=== PATIENT | male | born 1990 | race Caucasian/White ===

== ENCOUNTER 2016-06-03 22:14 | Emergency (ER) | payer OTHER ==
[~2016-06-03] VITALS: Ht 172.7 cm; Wt 94.6 kg
[2016-06-03 22:16] VITALS: Ht 172.7 cm; Wt 94.6 kg
[2016-06-03] MEDS ORDERED: AMOXICILLIN 250 MG CAP PO STA (22:23)
[2016-06-03] MEDS ORDERED: AMOX500C3 PO (22:25)
[2016-06-03] MEDS ORDERED: TRAM-10 PO (22:25)
[2016-06-03] MEDS ORDERED: TRAMADOL HCL 50 MG HOME PACK PO ONE (22:30)
[2016-06-03 22:32] VITALS: BP 155/85; PULSE 91; TEMP 37; O2SAT 98
--- NOTE | 2016-06-04 00:47 | EMERGENCY ROOM VISIT NOTE ---
History First contact with patient: 22:17 Chief Complaint: SINUS CONGESTION/PRESSURE Stated Complaint: RT SINUS PAIN Nursing Triage Summary: see triage note History of Present Illness The patient is a 26 year old male who presents to the Emergency Room with complaints of right upper dental pain for the past few days has not seen a dentist in quite some time. Patient states the pain radiates to his ear. Chewing makes it worse and nothing makes it better. Patient denies fevers, sore throat, tongue swelling, facial swelling, chest pain, dyspnea, neck stiffness, lightheadedness or dizziness. He is tolerating by mouth fluids and food. Review of Systems See HPI for pertinent positives & negatives. A total of 10 systems reviewed and were otherwise negative. Past Medical/Surgical History Medical Problems: (1) Asthma (2) Depression Family History Diabetes mellitus Social History Smoking Status: Never Smoker Marital Status: single Housing Status: lives with roommate Occupation Status: employed, [employer] student Current/Historical Medications Scheduled Amoxicillin (Amoxil), 500 MG PO TID Scheduled PRN Tramadol (Ultram), 1 TAB PO Q4H PRN for Pain Allergies Coded Allergies: Acetaminophen (Unverified Allergy, Unknown, ITCHY, 12/18/15) Oxycodone (Unverified Allergy, Unknown, ITCHY, 12/18/15) Physical Exam Vital Signs Date Time Temp Pulse Resp B/P Pulse Ox O2 Delivery O2 Flow Rate FiO2 06/03/16 22:32 37.0 91 18 155/85 98 06/03/16 22:16 37.0 91 18 155/85 98 Room Air Pain Rating (0-10): 2.0 Physical Exam VITALS: Vitals are noted on the nurse's note and reviewed by myself. Vital signs stable. GENERAL: Pleasant male, in no acute distress, nondiaphoretic, well-developed well-nourished. SKIN: The skin was without rashes, erythema, edema, or bruising. There is no tenting of the skin. Capillary reflex less than 2 seconds. HEAD: Normocephalic atraumatic. EARS: External auditory canals clear, tympanic membranes pearly crews without erythema or effusion bilaterally. EYES: Pupils equal round and reactive to light and accommodation. Conjunctivae without injection, sclerae without icterus. Extraocular movements intact. NOSE: Patent, turbinates without inflammation or discharge. No sinus tenderness. MOUTH: Mucous membranes moist. No Luis's angina Pharynx without erythema or exudate. Uvula midline. Airway patent. Tongue does not deviate. Dental exam: Extensive plaque buildup with dental decay to the right upper molar with no palpable abscess NECK: Supple without nuchal rigidity. No lymphadenopathy. No thyromegaly. Cervical spine is nontender. No JVD. HEART: Regular rate and rhythm without murmurs gallops or rubs. LUNGS: Clear to auscultation bilaterally without wheezes, rales or rhonchi. No dullness to percussion. No retractions or accessory muscle use. ABDOMEN: Positive bowel sounds x 4. Normal tympanic percussion. Soft, nontender, without masses or organomegaly. Cheema sign negative. No guarding or rebound tenderness. MUSCULOSKELETAL: No muscle atrophy, erythema, or edema noted. NEURO: Patient was alert and oriented to person place and time. Normal sensation to light and sharp touch. No focal neurological deficits. Medical Decision & Procedures Medications Administered Medications (Trade) Dose Ordered Sig/Tim Route Start Time Stop Time Status Last Admin Dose Admin Amoxicillin (Amoxil Cap) 500 mg NOW STAT PO 06/03/16 22:23 06/03/16 22:24 DC 06/03/16 22:31 500 MG Tramadol HCl (Ultram Home Pack) 1 homepack UD ONCE PO 06/03/16 22:30 06/03/16 22:31 DC 06/03/16 22:32 1 HOMEPACK ED Course Prior records reviewed and summarized as above. Triage Nursing notes reviewed. The patient's history was concerning for dental pain Differential diagnosis: Etiologies such as cellulitis, abscess, gingivitis, dental caries, Luis angina , otitis, as well as others were entertained.. Physical examination: The physical examination was consistent with dental pain from dental caries ER treatment provided: Amoxicillin, Ultram On reassessment the patient felt better. Diagnostics interpreted by me: Deferred This appears to be dental pain from dental caries. Patient was counseled on proper dental hygiene and verbalized understanding of this. He was advised follow-up with dentistry for definitive care for his dental problem or here in the ER sooner for facial swelling, fevers, dysphagia, worsening signs or symptoms or as needed. Patient had no signs of airway compromise or Luis angina or accessory was well-appearing. By the evaluation outlined above emergent etiologies such as abscess, Luis angina, as well as others were deemed relatively unlikely. The pt informed about the findings as listed above. All questions were answered and pleased with the treatment. Return instructions were outlined and the patient was discharged in stable condition. Outpatient prescription management: Amoxicillin, Ultram Referral: The patient was referred back to dentistry for follow-up in 2 to 3 days for a recheck of the current condition. Medical Decision As above Impression Primary Impression: Dental caries Additional Impression: Pain, dental Departure Information Dispostion Home / Self-Care Condition GOOD Prescriptions Tramadol (Ultram) 50 Mg Tab 1 TAB PO Q4H Y for Pain, #14 TAB For Initial Treatment Prov: Mabel Tellez .JACQUIE 06/03/16 Amoxicillin (AMOXIL) 500 Mg Cap 500 MG PO TID for 10 Days, #30 CAP Prov: Mabel Tellez PA-C 06/03/16 Referrals Jackson Sorenson, DO No Doctor, Assigned (PCP) Forms WORK / SCHOOL INSTRUCTIONS, HOME CARE DOCUMENTATION FORM, IMPORTANT VISIT INFORMATION Patient Instructions Visit Dental, [facility], [facility] Additional Instructions Amoxicillin 500mg: Take one pill 3 times daily for 10 days for your infection. All antibiotics can cause diarrhea. If this occurs and you feel worse or it does not resolve in 1-2 days follow up with your doctor or return to the Emergency Department as this could be signs of serious underlying problems. Any medication can cause an allergic reaction, stop the pills immediately and return to the ER for rash, hives, breathing difficulties, or swelling. Ultram 50 mg: Take 1-2 pills every four hours for breakthrough pain. Avoid alcohol, operating machinery or dangerous equipment, working on ladders or roofs , DRIVING, or situations where being under the influence may be dangerous. It is recommended to use an [id number] stool softener such as Colace, 100mg twice daily while taking this medication to avoid constipation. Ibuprofen(Motrin, Advil) may be used for fever or pain. Use 600mg every six hours as needed. Take with food. Avoid using more than 2400mg in a 24 hour period. Do not use 2400mg per day for more than three consecutive days without physician direction. Prolonged inappropriate use can lead to stomach upset or ulcers. This medication can be taken if you need to drive, work, or perform activities which may be dangerous when taking narcotic pain medication. (AND/OR) Acetaminophen(Tylenol) may be used for fever or pain. Use 1000mg every six hours as needed. Avoid using more than 3000mg in a 24 hour period. This medication can be taken if you need to drive, work, or perform activities which may be dangerous when taking narcotic pain medication. [place] teeth twice a day, floss daily and do warm saltwater gargles 3 times a day. See a dentist as soon as possible for definitive care for your dental problem. Return to ER sooner for facial swelling, fever, redness, worsening signs or symptoms or as needed. Problem Qualifiers
== END 2016-06-03 22:32 | disposition home or self-care (01) ==
LOC: C.EDB 22:14
DX: K02.9 Dental caries, unspecified (principal); J45.909 Unspecified asthma, uncomplicated; F32.9 Major depressive disorder, single episode, unspecified; Z83.3 Family history of diabetes mellitus

== ENCOUNTER 2016-06-06 18:44 | Emergency (ER) | payer OTHER ==
[~2016-06-06] VITALS: Ht 172.7 cm; Wt 95.0 kg
[~2016-06-06 18:44] MED LIST: AMOX500C3 PO; TRAM-10 PO
[2016-06-06 18:47] VITALS: TEMP 36.8; Ht 172.7 cm; Wt 95.0 kg
[2016-06-06] MEDS ORDERED: SODIUM CHLORIDE 0.9% 1000ML 1,000 ML IV STA (18:56)
[2016-06-06] MEDS ORDERED: DiphenhydrAMINE HCL 50 MG/ML VIAL IV STA (18:56)
[2016-06-06] MEDS ORDERED: ACETAMINOPHEN 500 MG TAB PO STA (18:56)
--- NOTE | 2016-06-06 19:04 | EMERGENCY ROOM VISIT NOTE ---
History Report prepared by Estrella: Raeann Flores Under the Supervision of: Dr. Jeff Velasco M.D. First contact with patient: 18:51 Chief Complaint: HEADACHE Stated Complaint: HEADACHE History of Present Illness The patient is a 26 year old male who presents to the Emergency Room with complaints of a persistent headache that began one day ago. He currently rates his discomfort as an 8/10 in severity. The patient states that he has a history of a "ruptured blood vessel" in the back of his head one year ago. He states that he had to stop exercising for two months. The patient states that yesterday while at the gym he was in the middle of a shoulder press when he felt a pressure on the left side of his head in the middle of his repetitions. He states that with his previous rupture, he had an epistaxis and eye watering. The patient states that this time, his symptoms have not been as extreme. He states that he had slight epistaxis and left eye edema and left eye watering. The patient states that his headache hasn't gone away since the incident--it has waxed and waned. He states that yesterday he tried taking Advil migraine and ibuprofen without relief of his symptoms. The patient denies taking anything for his pain today. The patient notes recent sinus congestion. Source of History: patient Onset: one day ago Position: head Symptom Intensity: 8/10 Quality: pressure Timing: other (persistent) Note: Associated Symptoms: epistaxis, left eye watering and left eye edema, sinus congestion Review of Systems See HPI for pertinent positives & negatives. A total of 10 systems reviewed and were otherwise negative. Past Medical & Surgical Medical Problems: (1) Asthma (2) Depression Family History Diabetes mellitus Social History Smoking Status: Never Smoker Marital Status: single Housing Status: lives with roommate Occupation Status: employed, [employer] student Current/Historical Medications Scheduled PRN Amphetamine-Dextroamphetamine 20MG (Adderall 20MG), 20 MG PO DAILY PRN for PRN Allergies Coded Allergies: Acetaminophen (Unverified Allergy, Unknown, ITCHY, 06/06/16) Oxycodone (Unverified Allergy, Unknown, ITCHY, 06/06/16) Physical Exam Vital Signs Date Time Temp Pulse Resp B/P Pulse Ox O2 Delivery O2 Flow Rate FiO2 06/06/16 18:47 36.8 73 16 139/68 99 Room Air Physical Exam GENERAL: Patient is in no acute distress. HEENT: No acute trauma, normocephalic atraumatic, mucous membranes moist, no nasal congestion, no scleral icterus. No tenderness to the scalp, no rash, Left TM normal, throat without erythema or exudate. NECK: No stridor, no adenopathy, no meningismus, trachea is midline. LUNGS: Clear to auscultation bilaterally, no wheeze, no rhonchi, breath sounds equal. HEART: Without murmurs gallops or rubs, regular rate and rhythm. ABDOMEN: Soft, nontender, bowel sounds positive, no hernias, no peritonitis. EXTREMITIES: No cyanosis or edema, full range of motion of all the joints without pain or difficulty, no signs for acute trauma. NEUROLOGIC: Oriented x 3, no acute motor or sensory deficits, no focal weakness. SKIN: No rash, no jaundice, no diaphoresis. Medical Decision & Procedures ER Provider Diagnostic Interpretation: CT angiogram of the brain shows no acute bleed or aneurysm. No mass effect seen. Sinusitis was noted. Laboratory Results 06/06/16 19:13 06/06/16 19:13 Test 06/06/16 19:13 Red Blood Count 5.62 M/uL (4.7-6.1) Mean Corpuscular Volume 83.1 fL (80-100) Mean Corpuscular Hemoglobin 30.1 pg (25-34) Mean Corpuscular Hemoglobin Concent 36.2 g/dl (32-36) RDW Standard Deviation 38.8 fL (36.4-46.3) RDW Coefficient of Variation 13.0 % (11.5-14.5) Mean Platelet Volume 9.8 fL (7.4-10.4) Anion Gap 6.0 mmol/L (3-11) Est Creatinine Clear Calc Drug Dose 130.3 ml/min Estimated GFR () 125.9 Estimated GFR (Non- 108.7 BUN/Creatinine Ratio 14.9 (10-20) Calcium Level 9.0 mg/dl (8.5-10.1) Laboratory results reviewed by me. Medications Administered Medications (Trade) Dose Ordered Sig/Tim Route Start Time Stop Time Status Last Admin Dose Admin Sodium Chloride (Nss 1000ml) 1,000 ml @ 999 mls/hr Q1H1M STAT IV 06/06/16 18:56 06/06/16 19:56 DC 06/06/16 19:43 999 MLS/HR Acetaminophen (Tylenol Tab) 1,000 mg NOW STAT PO 06/06/16 18:56 06/06/16 19:00 DC 06/06/16 19:42 1,000 MG Diphenhydramine HCl (Benadryl Inj) 25 mg NOW STAT IV 06/06/16 18:56 06/06/16 19:00 DC 06/06/16 19:41 25 MG ED Course 1850: The patient was evaluated in room B10. A complete history and physical exam was performed. 1855: Ordered Benadryl Inj 25 mg IV, Tylenol Tab 1000 mg PO, Sodium Chloride 1000 ml @ 999 mls/hr IV. The patient received a dose of oral Augmentin, he was discharged home. Medical Decision The patient is a 26 year old male who presents to the ED with complaints of a headache. Differential diagnoses considered include tension headache, migraine headache, sinusitis, intracranial bleeding, aneurysm, dehydration, electrolyte imbalance, infection. There is no concerning leukocytosis, there was no worrisome anemia. No significant electrolyte abnormality or kidney failure. On exam, the patient had no acute focal neurologic findings. He was awake, he was alert, he was not febrile, there is no meningismus. He was not toxic. He was smiling and joking around at times when talking about his situation. Brain CT was done, CT angiogram demonstrated no acute bleed or mass effect. There was no aneurysm. Sinusitis was noted. Patient presents with a headache that began while exercising. He had a similar event years ago and states that his event years ago was quite a bit worse. He underwent imaging of the brain at that time as well as a lumbar puncture, everything was normal. He eventually felt better after a few days or so. I do not feel the patient needs a lumbar puncture. His headache years ago that began with exercise was much more severe than today's and his workup at that time, including a lumbar puncture, was negative. Today, he is not in any distress. He does have sinusitis by CT and this may be a large part of his issue. He will be discharged on Augmentin for 10 days. He should avoid exercise, Motrin or Tylenol for pain, rest and hydration were encouraged. During the patient's ER stay, he was given oral Tylenol, IV saline and IV Benadryl. He was given a dose of oral Augmentin prior to discharge. He is doing well. Impression Primary Impression: Headache Additional Impression: Sinusitis Scribe Attestation The scribe's documentation has been prepared under my direction and personally reviewed by me in its entirety. I confirm that the note above accurately reflects all work, treatment, procedures, and medical decision making performed by me. Departure Information Dispostion Home / Self-Care Referrals No Doctor, Assigned (PCP) Patient Instructions My [facility] [address] Additional Instructions no exercise or gym work for at least a week--you should be 100 percent better for a few days before returning to exercise motrin and or tylenol for pain--you may need both Augmentin 2 times a day for 10 days. stay well hydrated and rest--8 hours per night see michell shelton for a recheck in a few days return for worsening symptoms imaging and your exam today were all ok Problem Qualifiers
[2016-06-06] MEDS ORDERED: OPTIRAY 320 IV PRN (19:15)
[2016-06-06] MEDS ORDERED: AMPH20TA2 PO (19:20)
[2016-06-06 19:23] LABS: HEMATOCRIT 46.7 % (42-52); MEAN CELL VOLUME 83.1 fL (80-100); MEAN CORPUSCULAR HEMOGLOBIN 30.1 pg (25-34); MEAN CORPUSCULAR HGB CONC 36.2 g/dl (32-36); MEAN PLATELET VOLUME 9.8 fL (7.4-10.4); PLATELET COUNT 234 K/uL (130-400); RED BLOOD COUNT 5.62 M/uL (4.7-6.1); WHITE BLOOD COUNT 10.81 K/uL (4.8-10.8)
[2016-06-06 19:38] LABS: BUN/CREATININE RATIO 14.9 (10-20); CREATININE 0.96 mg/dl (0.60-1.40); POTASSIUM 4.1 mmol/L (3.5-5.1)
--- NOTE | 2016-06-06 20:49 | DIAGNOSTIC IMAGING REPORT ---
CT ANGIOGRAM OF THE BRAIN COMBO CLINICAL HISTORY: Headache. COMPARISON STUDY: CT angiogram of the brain dated 01/21/2009. TECHNIQUE: Before and following the IV administration of 92 cc of Optiray 320, CT angiogram of the brain was performed from the skull base to the vertex. Images are reviewed in the axial, sagittal, and coronal planes. 3-D MIPS images are created and assessed. IV contrast was administered without complication. CT DOSE: 841.02 mGy.cm FINDINGS: Brain parenchyma: The brain parenchyma is normal in appearance. There is no hemorrhage, mass effect, or evidence of acute territorial ischemia by CT criteria. There is no evidence of enhancing mass lesion on the angiogram phase images. No extra-axial fluid collection is seen. Guan-white matter differentiation is preserved. Ventricles, sulci, and cisterns: Normal in configuration. CT angiogram of the brain: The [place] of [place] is development likely complete. The internal carotid arteries are widely patent, as are the anterior and middle cerebral arteries. The vertebrobasilar system and posterior cerebral arteries are widely patent. The vertebral arteries are codominant. There is no aneurysm, high-grade stenosis, or focal vessel cutoff identified throughout the intracranial circulation. Dural sinuses: Clear as visualized. Orbits: The bony orbits are intact. The orbital contents are normal as visualized. Sinuses and mastoids: Moderate mucosal thickening and air-fluid levels are identified within the maxillary antra. Mucosal thickening and fluid is also seen within the right frontal and right anterior ethmoid sinuses. The mastoid air cells are well pneumatized. Calvarium: Unremarkable. IMPRESSION: 1. No acute intracranial abnormality. 2. Unremarkable CT angiogram of the brain. 3. Paranasal sinus disease as above. Electronically signed by: Jeff Garcia M.D. 06/06/2016 8:47 PM Dictated Date/Time: 06/06/2016 8:43 PM
[2016-06-06] MEDS ORDERED: AMOXICILLIN/CLAVULANATE TAB 875 MG TAB PO ONE (21:00)
[2016-06-06] MEDS ORDERED: AMOX875T PO (21:00)
[2016-06-06 21:30] VITALS: BP 157/79; PULSE 64; O2SAT 98
== END 2016-06-06 21:30 | disposition home or self-care (01) ==
LOC: C.EDB 18:44
DX: R51 Headache (principal); J32.9 Chronic sinusitis, unspecified; J45.909 Unspecified asthma, uncomplicated; F32.9 Major depressive disorder, single episode, unspecified; Z83.3 Family history of diabetes mellitus

== ENCOUNTER 2016-11-29 19:47 | Emergency (ER) | payer OTHER ==
[~2016-11-29] VITALS: Ht 170.2 cm; Wt 95.4 kg
[~2016-11-29 19:47] MED LIST changes: -AMOX500C3 PO; +AMPH20TA2 PO; -TRAM-10 PO
[2016-11-29 19:50] VITALS: Ht 170.2 cm; Wt 95.4 kg
[2016-11-29] MEDS ORDERED: PROT1POW PO (20:00)
[2016-11-29 20:30] VITALS: BP 174/88; PULSE 100; TEMP 37; O2SAT 98
--- NOTE | 2016-11-29 20:31 | DIAGNOSTIC IMAGING REPORT ---
L RIBS UNILATERAL WITH PA CHEST CLINICAL HISTORY: Left rib pain following injury. COMPARISON STUDY: Chest radiograph May 04, 2013. FINDINGS: There is no pneumothorax or pleural effusion. Lungs are clear. Cardiomediastinal silhouette is normal. Pulmonary vascularity is normal. No acute left rib fractures are identified. IMPRESSION: No pneumothorax. No acute left rib fractures identified. Electronically signed by: Alessandro Chi M.D. 11/29/2016 8:30 PM Dictated Date/Time: 11/29/2016 8:28 PM
[2016-11-29] MEDS ORDERED: TRAM-10 PO (20:51)
[2016-11-29] MEDS ORDERED: TRAMADOL HCL 50 MG HOME PACK PO ONE (21:00)
--- NOTE | 2016-12-01 01:03 | EMERGENCY ROOM VISIT NOTE ---
ED Visit Note First contact with patient: 19:56 Chief Complaint: I'm having left sided rib pain. History of Present Illness: Mr. Gardner is a 26-year-old male who ambulates into the ED complaining of left lateral rib pain. Patient reports he was wrestling this afternoon when someone started squeezing his chest. He reports he felt a popping sensation on the left and developed left-sided rib pain. The pain is predominantly in the area of the seventh and eighth lateral and slightly anterior portion of the ribs. He rates his discomfort 10/10. The pain is nonradiating. The pain worsens with palpation and deep inspiration. He has not identified any alleviating factors related to the pain. He has not taken a medication for pain prior to arrival at the hospital. He denies any associated symptoms including fevers, chills, sweats, skin eruptions, skin color changes, upper respiratory tract symptoms, cough, wheezing, shortness of breath, abdominal pain, nausea, vomiting, hematuria. Review of Systems: As noted above in history of present illness. 8 body systems were reviewed and found to be negative as noted above. Past Medical History: Diabetes, hypertension, asthma, status post lipoma removal. Current Medications: Protein. Allergies to Medications: Oxycodone. Social History: Patient is currently employed; he feels safe in his home environment; he denies tobacco use; he admits to alcohol use. Physical Examination: Vital Signs: Date Time Temp Pulse Resp B/P (MAP) Pulse Ox O2 Delivery O2 Flow Rate FiO2 11/29/16 20:30 37.0 100 20 174/88 98 Room Air 11/29/16 19:50 37.4 100 20 130/75 98 Room Air GENERAL: 26-year-old male in mild to moderate distress due to pain, nontoxic- appearing, afebrile and hemodynamically stable. NEUROLOGICAL: Awake, alert and oriented to person, place and time. Answering questions appropriately and following commands. Normal gait. SKIN: Warm, dry and pink. No soft tissue eruptions or trauma noted. HEENT: Atraumatic and normocephalic. BACK: No tenderness over the bony spine. No CVA tenderness. THORAX: Lungs sounds are clear to auscultation and equal bilaterally with symmetrical chest wall. No wheezing, rales or rhonchi. Moderate tenderness over the left lateral ribs without bony deformity, bony crepitus, swelling, ecchymosis or subcutaneous air. No increased respiratory effort or rate. HEART: Regular rate and rhythm. No gallops, rubs or murmurs are appreciated. ABDOMEN: Flat, soft and nontender. Positive bowel sounds in all quadrants. No guarding, rigidity or organomegaly. EXTREMITIES: Moves all extremities well on command and with purpose. All distal neurovascular statuses are intact and equal bilaterally. No calf tenderness or cords. ED Course: Patient is assessed as noted above. Patient's medication list was reviewed. A she was offered pain medication and refused. PA Chest with Rib Series: Were read by myself and the radiologist showing no acute infiltrates, effusions or pneumothorax. Normal heart silhouette and no obvious left-sided rib fractures. Patient was educated about today's findings and instructed on his treatment plan ; he verbalized understanding and agreement with this plan. Clinical Impression: Left sided rib pain. Decision-Making: Initially my differential diagnosis I considered rib fracture, rib contusion, costochondritis, pneumothorax, pneumonia and other causes. Disposition: A shunt discharged home in stable condition; prior to departure he was reassessed and subjectively reported he was feeling better and rated his discomfort 8/10. Plan: Patient was placed on a sliding pain medication scale of ibuprofen, acetaminophen and Ultram. Distal comfort measures were decreased activity and ice. Patient was encouraged to avoid upper extremity workout for 3 days. Patient is encouraged to follow-up at [facility] for recheck in 3-4 days. Patient was encouraged to do deep breathing exercises every couple hours during the day while awake. Patient is encouraged return ED for worsening/uncontrolled pain, shortness of breath, fevers, coughs, wheezing or any new/concerning symptoms.
== END 2016-11-29 21:01 | disposition home or self-care (01) ==
LOC: C.EDB 19:48 → C.EDD 21:01
DX: R07.81 Pleurodynia (principal); E11.9 Type 2 diabetes mellitus without complications; I10 Essential (primary) hypertension; J45.909 Unspecified asthma, uncomplicated; Z79.899 Other long term (current) drug therapy; Z88.5 Allergy status to narcotic agent

== ENCOUNTER 2017-10-09 09:33 | Emergency (ER) | payer OTHER ==
[~2017-10-09] VITALS: Ht 172.7 cm; Wt 96.6 kg
[~2017-10-09 09:33] MED LIST changes: -AMPH20TA2 PO; +PROT1POW PO
[2017-10-09 09:37] VITALS: TEMP 37; Ht 172.7 cm; Wt 96.6 kg
[2017-10-09] MEDS ORDERED: SODIUM CHLORIDE 0.9% 1000ML 1,000 ML IV STA (10:06)
[2017-10-09 10:23] LABS: BASO % 0.2 %; BASO ABS # 0.02 K/uL (0-0.2); EOS ABS # 0.66 K/uL (0-0.5); HEMATOCRIT 49.6 % (42-52); HEMOGLOBIN 17.6 g/dL (14.0-18.0); IG# 0.02 K/uL (0.00-0.02); LYMPH % 30.2 %; LYMPH ABS # 2.83 K/uL (1.2-3.4); MEAN CELL VOLUME 83.8 fL (80-100); MEAN CORPUSCULAR HEMOGLOBIN 29.7 pg (25-34); MEAN CORPUSCULAR HGB CONC 35.5 g/dl (32-36); MEAN PLATELET VOLUME 9.9 fL (7.4-10.4); MONO % 10.9 %; MONO ABS # 1.02 K/uL (0.11-0.59); NEUT % 51.5 %; NEUT ABS # 4.83 K/uL (1.4-6.5); PLATELET COUNT 183 K/uL (130-400); RED CELL DISTRIBUTION WIDTH CV 13.1 % (11.5-14.5); RED CELL DISTRIBUTION WIDTH SD 39.6 fL (36.4-46.3); WHITE BLOOD COUNT 9.38 K/uL (4.8-10.8)
[2017-10-09 10:42] LABS: ALBUMIN 3.5 gm/dl (3.4-5.0); CALCIUM 8.8 mg/dl (8.5-10.1); CREATININE 1.18 mg/dl (0.60-1.40); POTASSIUM 3.9 mmol/L (3.5-5.1); TOTAL PROTEIN 7.2 gm/dl (6.4-8.2)
--- NOTE | 2017-10-09 11:41 | EMERGENCY ROOM VISIT NOTE ---
History First contact with patient: 09:54 Chief Complaint: ABDOMINAL PAIN Stated Complaint: STOMACH/WEAKNESS History of Present Illness Via private vehicle the patient is a 27 year old male who presents to the Emergency Room with complaints of "stomach/weakness". The patient states that last night he began with generalized abdominal pain with diarrhea and vomiting. He notes that he had diarrhea all night long. He states that his last meal was around 7 or 8 PM of this past evening and he had chicken/broccoli. He notes it was a meal prep which was prepared this past Sunday. He states it was refrigerated since that time. He states that the abdominal pain is on the right side diffusely. He notes the pain is more with when he presses rather than at rest. He denies any shortness of breath, visual changes, headache no abdominal surgeries. He rates the overall pain upon presentation as an 8/10. Review of Systems A complete 10-point Review of Systems was discussed with the patient, with pertinent positives and negatives listed in the History of Present Illness. All remaining Review of Systems questions can be considered negative unless otherwise specified. Past Medical/Surgical History Medical Problems: (1) Asthma (2) Depression Family History Diabetes mellitus Social History Smoking Status: Never Smoker Drug Use: none Marital Status: single Housing Status: lives with roommate Occupation Status: employed Current/Historical Medications No Active Prescriptions or Reported Meds Physical Exam Vital Signs Date Time Temp Pulse Resp B/P (MAP) Pulse Ox O2 Delivery O2 Flow Rate FiO2 10/09/17 11:56 74 17 148/94 97 10/09/17 09:37 37.0 80 18 139/81 97 Room Air Physical Exam VITAL SIGNS - Vital signs and nursing notes were reviewed. Stable. Afebrile. GENERAL -27-year-old male appearing his stated age who is in no acute distress. Upon my entrance in the exam room the patient is resting comfortably in bed, and a slight recline with a smile. Communicates well with provider and answers questions appropriately. SKIN - Without rashes. No meningeal or petechial rash. HEAD - NC/AT. EYES - Sclera anicteric. Palpebral conjunctiva pink and moist with no injection noted. EARS - No deformities of external structures noted on gross examination bilaterally. NOSE - Midline and without cyanosis. No epistaxis or purulent drainage noted. MOUTH/OROPHARYNX - Without perioral cyanosis. NECK - Neck with FROM.No nuchal rigidity. LUNGS - Chest wall symmetric without accessory muscle use, intercostals retractions, or central cyanosis. Normal vesicular breath sounds CTA B/L. No wheezes, rales, or rhonchi appreciated. CARDIAC - RRR with S1/S2. No murmur, rubs, or gallops appreciated. ABDOMEN - Abdominal contour normal without pulsations or visible masses. BS normoactive all four quadrants. No palpable masses, hepatosplenomegaly, or ascites noted. EXTREMITIES - No clubbing or peripheral cyanosis. No pretibial edema present. +3 /5 radial, posterior tibial, and dorsalis pedis pulses palpated throughout. +5/ 5 strength noted in UE/LE bilaterally. NEUROLOGIC - Cranial nerves II through XII grossly intact. Sensory intact to light touch throughout. PSYCH - A&O, and cooperates fully with examiner. Pt is very pleasant and interacts well with examiner. Medical Decision & Procedures Laboratory Results 10/09/17 10:15 Red Blood Count 5.92, Mean Corpuscular Volume 83.8, Mean Corpuscular Hemoglobin 29.7, Mean Corpuscular Hemoglobin Concent 35.5, Mean Platelet Volume 9.9, Neutrophils (%) (Auto) 51.5, Lymphocytes (%) (Auto) 30.2, Monocytes (%) (Auto) 10.9, Eosinophils (%) (Auto) 7.0, Basophils (%) (Auto) 0.2, Neutrophils # (Auto ) 4.83, Lymphocytes # (Auto) 2.83, Monocytes # (Auto) 1.02, Eosinophils # (Auto ) 0.66, Basophils # (Auto) 0.02 10/09/17 10:15 Test 10/09/17 10:15 10/09/17 11:20 White Blood Count 9.38 K/uL (4.8-10.8) Red Blood Count 5.92 M/uL (4.7-6.1) Hemoglobin 17.6 g/dL (14.0-18.0) Hematocrit 49.6 % (42-52) Mean Corpuscular Volume 83.8 fL (80-100) Mean Corpuscular Hemoglobin 29.7 pg (25-34) Mean Corpuscular Hemoglobin Concent 35.5 g/dl (32-36) Platelet Count 183 K/uL (130-400) Mean Platelet Volume 9.9 fL (7.4-10.4) Neutrophils (%) (Auto) 51.5 % Lymphocytes (%) (Auto) 30.2 % Monocytes (%) (Auto) 10.9 % Eosinophils (%) (Auto) 7.0 % Basophils (%) (Auto) 0.2 % Neutrophils # (Auto) 4.83 K/uL (1.4-6.5) Lymphocytes # (Auto) 2.83 K/uL (1.2-3.4) Monocytes # (Auto) 1.02 K/uL (0.11-0.59) Eosinophils # (Auto) 0.66 K/uL (0-0.5) Basophils # (Auto) 0.02 K/uL (0-0.2) RDW Standard Deviation 39.6 fL (36.4-46.3) RDW Coefficient of Variation 13.1 % (11.5-14.5) Immature Granulocyte % (Auto) 0.2 % Immature Granulocyte # (Auto) 0.02 K/uL (0.00-0.02) Anion Gap 7.0 mmol/L (3-11) Est Creatinine Clear Calc Drug Dose 106.0 ml/min Estimated GFR () 97.4 Estimated GFR (Non- 84.1 BUN/Creatinine Ratio 14.4 (10-20) Calcium Level 8.8 mg/dl (8.5-10.1) Total Bilirubin 0.5 mg/dl (0.2-1) Aspartate Amino Transf (AST/SGOT) 17 U/L (15-37) Alanine Aminotransferase (ALT/SGPT) 29 U/L (12-78) Alkaline Phosphatase 66 U/L (45-117) Total Protein 7.2 gm/dl (6.4-8.2) Albumin 3.5 gm/dl (3.4-5.0) Globulin 3.7 gm/dl (2.5-4.0) Albumin/Globulin Ratio 0.9 (0.9-2) Lipase 206 U/L (73-393) Urine Color YELLOW Urine Appearance CLOUDY (CLEAR) Urine pH 6.5 (4.5-7.5) Urine Specific [place] 1.018 (1.000-1.030) Urine Protein NEG (NEG) Urine Glucose (UA) NEG (NEG) Urine Ketones NEG (NEG) Urine Occult Blood NEG (NEG) Urine Nitrite NEG (NEG) Urine Bilirubin NEG (NEG) Urine Urobilinogen NEG (NEG) Urine Leukocyte Esterase NEG (NEG) Urine WBC (Auto) 0 /hpf (0-5) Urine RBC (Auto) 0-4 /hpf (0-4) Urine Hyaline Casts (Auto) 1-5 /lpf (0-5) Urine Epithelial Cells (Auto) 0-5 /lpf (0-5) Urine Bacteria (Auto) NEG (NEG) Medications Administered Medications (Trade) Dose Ordered Sig/Tim Route Start Time Stop Time Status Last Admin Dose Admin Sodium Chloride 1,000 ml @ 999 mls/hr Q1H1M STAT IV 10/09/17 10:06 10/09/17 11:06 DC 10/09/17 10:19 999 MLS/HR Medical Decision Patient was seen and evaluated as above in room a 12. Review was performed of nursing notes and vital signs. After obtaining a thorough history and physical examination the above work up was performed. He presents to us today with nausea, vomiting, diarrhea and generalized abdominal pain, favoring the right side. He is nontoxic on examination. He notes no pain at rest the longer he is here, rather he does have some generalized tenderness in the right lower no rebound tenderness. I did elect to obtain baseline labs and there is no concerning leukocytosis, anemia or emergent metabolic process. I discussed with him thoroughly regarding benefit versus risk of obtaining a CT scan of the abdomen and pelvis to rule out emergent causes such as appendicitis. Through shared decision-making with the patient, it was decided to refrain as the risk was felt to outweigh the benefit given he had no pain at rest, had symptoms transient gastroenteritis, and normal leukocytosis. He notes that he will return if he worsens in any way. He is to call the family doctor to schedule follow-up or return with worsening. The patient was educated upon management, educated upon todays findings/results, educated upon symptoms in which to return , had questions answered prior to discharge, and was discharged home in good condition. Case was discussed with the attending physician. In the evaluation and treatment of this patient the following differential diagnoses were entertained: Gastroenteritis, gastritis, pancreatitis, diverticulitis, appendicitis, acute cholecystitis, among others. Impression Primary Impression: Acute gastroenteritis Departure Information Dispostion Home / Self-Care Condition GOOD Prescriptions No Active Prescriptions or Reported Meds Referrals Sunny Aggarwal D.O. (PCP) Patient Instructions My [facility] Additional Instructions You have been treated in the Emergency Department your Abdominal Pain. At this time I believe you are experiencing what is called gastroenteritis is likely from a virus or food that you ate and should pass in the near future. As we discussed, if you experience increased abdominal pain, fevers or worsening symptoms please return. As we discussed there are organs in the area such as the appendix and gallbladder which could also cause the symptoms. For pain control, you can use the following [id number] medicines (if >12 yo): - Regular strength (325mg/tab) Tylenol (acetaminophen) 2 tabs every 4-6 hours as needed. Do not exceed 12 tablets in a 24 hour period. Avoid taking more than 3 grams (3000 mg) of Tylenol per day. This includes any other sources of acetaminophen you may take on a regular basis. - Regular strength (200 mg/tab) Advil (ibuprofen) 1-2 tabs every 4-6 hours as needed. Do not exceed a dose of 3200 mg per day. Drink plenty of water and stay well hydrated. As with any trip to the Emergency Department, you should follow-up with your Primary Care Provider from today's visit. Return to the emergency department if your symptoms persist despite treatment plan outlined above or if the following symptoms occur: increased fevers, chills , worsening nausea/vomiting, blood in your stool or urine.
[2017-10-09 11:56] VITALS: BP 148/94; PULSE 74; O2SAT 97
== END 2017-10-09 11:57 | disposition home or self-care (01) ==
LOC: C.EDB 09:35 → C.EDA 11:57
DX: K52.9 Noninfective gastroenteritis and colitis, unspecified (principal); R10.9 Unspecified abdominal pain; J45.909 Unspecified asthma, uncomplicated; F32.9 Major depressive disorder, single episode, unspecified; Z83.3 Family history of diabetes mellitus